=== PATIENT | female | born 1940 | race Caucasian/White ===

== ENCOUNTER 2016-10-24 09:43 | Outpatient (CLI) | payer MEDICARE, OTHER ==
[2016-10-24 10:43] LABS: eGFR (African) > 60; eGFR (Non-African) > 60
== END 2016-10-24 09:44 ==
LOC: RAD 09:43
PROVIDERS: ATTEND Family Medicine
DX: E78.2 Mixed hyperlipidemia (principal); Z78.0 Asymptomatic menopausal state
CPT/HCPCS: 36415; 80053; 80061

== ENCOUNTER → 2017-10-31 | Outpatient (CLI) | payer MEDICARE, OTHER ==
[2017-10-31 18:02] LABS: TOTAL PROTEIN 7.1 g/dL (6.0-8.5)
== END ==
LOC: LAB 08:00
PROVIDERS: ATTEND Family Medicine
DX: E78.2 Mixed hyperlipidemia (principal)
CPT/HCPCS: 80053; 80061

== ENCOUNTER 2018-03-03 11:03 | Outpatient (CLI) | payer MEDICARE, OTHER ==
[2018-03-03 11:37] LABS: MEAN CORPUSCULAR HEMOGLOBIN 29.9 pg (28.0-34.0)
[2018-03-03 11:51] LABS: eGFR (Non-African) > 60
== END 2018-03-03 11:05 ==
LOC: RT 11:03
PROVIDERS: ATTEND Family Medicine
DX: I49.9 Cardiac arrhythmia, unspecified (principal)
CPT/HCPCS: 36415; 80053; 84443; 85027

== ENCOUNTER 2018-03-19 08:46 | Outpatient (CLI) | payer MEDICARE, OTHER | END 2018-03-19 08:48 | LOC: LAB 08:46 | PROVIDERS: ATTEND Family Medicine | DX: I48.91 Unspecified atrial fibrillation (principal); Z79.01 Long term (current) use of anticoagulants; Z51.81 Encounter for therapeutic drug level monitoring | CPT/HCPCS: 36415; 85610 ==

== ENCOUNTER 2018-03-21 07:55 | Outpatient (CLI) | payer MEDICARE, OTHER | END 2018-03-21 08:06 | LOC: LAB 07:55 | PROVIDERS: ATTEND Family Medicine | DX: I48.91 Unspecified atrial fibrillation (principal); Z79.01 Long term (current) use of anticoagulants; Z51.81 Encounter for therapeutic drug level monitoring | CPT/HCPCS: 36415; 85610 ==

== ENCOUNTER 2018-03-31 15:15 | Outpatient (CLI) | payer MEDICARE, OTHER | END 2018-03-31 15:17 | LOC: LAB 15:15 | PROVIDERS: ATTEND Internal Medicine | DX: I48.0 Paroxysmal atrial fibrillation (principal) | CPT/HCPCS: 36415; 85610 ==

== ENCOUNTER 2018-04-03 08:16 | Outpatient (CLI) | payer MEDICARE, OTHER | END 2018-04-03 08:18 | LOC: LAB 08:16 | PROVIDERS: ATTEND Family Medicine | DX: I48.2 Chronic atrial fibrillation (principal); Z51.81 Encounter for therapeutic drug level monitoring; Z79.01 Long term (current) use of anticoagulants | CPT/HCPCS: 36415; 85610 ==

== ENCOUNTER 2018-04-04 08:26 | Outpatient (CLI) | payer MEDICARE, OTHER | END 2018-04-04 08:35 | LOC: LAB 08:26 | PROVIDERS: ATTEND Family Medicine | DX: I48.2 Chronic atrial fibrillation (principal); Z51.81 Encounter for therapeutic drug level monitoring | CPT/HCPCS: 36415; 85610 ==

== ENCOUNTER 2018-04-10 09:06 | Outpatient (CLI) | payer MEDICARE, OTHER | END 2018-04-10 09:08 | LOC: LAB 09:06 | PROVIDERS: ATTEND Family Medicine | DX: I42.2 Other hypertrophic cardiomyopathy (principal); Z51.81 Encounter for therapeutic drug level monitoring | CPT/HCPCS: 36415; 85610 ==

== ENCOUNTER 2018-04-24 08:13 | Outpatient (CLI) | payer MEDICARE, OTHER | END 2018-04-24 08:30 | LOC: LAB 08:13 | PROVIDERS: ATTEND Internal Medicine | DX: Z79.01 Long term (current) use of anticoagulants (principal) | CPT/HCPCS: 36415; 85610 ==

== ENCOUNTER 2018-04-30 09:35 | Outpatient (CLI) | payer MEDICARE, OTHER | END 2018-04-30 09:36 | LOC: LAB 09:35 | PROVIDERS: ATTEND Internal Medicine | DX: Z79.01 Long term (current) use of anticoagulants (principal) | CPT/HCPCS: 36415; 85610 ==

== ENCOUNTER 2018-05-07 08:10 | Outpatient (CLI) | payer MEDICARE, OTHER | END 2018-05-07 08:13 | LOC: LAB 08:10 | PROVIDERS: ATTEND Internal Medicine | DX: Z79.01 Long term (current) use of anticoagulants (principal) | CPT/HCPCS: 36415; 85610 ==

== ENCOUNTER 2018-05-14 08:07 | Outpatient (CLI) | payer MEDICARE, OTHER | END 2018-05-14 08:10 | LOC: LAB 08:07 | PROVIDERS: ATTEND Internal Medicine | DX: Z79.01 Long term (current) use of anticoagulants (principal) | CPT/HCPCS: 36415; 85610 ==

== ENCOUNTER 2018-05-21 08:15 | Outpatient (CLI) | payer MEDICARE, OTHER | END 2018-05-21 08:17 | LOC: LAB 08:15 | PROVIDERS: ATTEND Internal Medicine | DX: Z79.01 Long term (current) use of anticoagulants (principal) | CPT/HCPCS: 36415; 85610 ==

== ENCOUNTER 2018-05-28 08:20 | Outpatient (CLI) | payer MEDICARE, OTHER | END 2018-05-28 08:22 | LOC: LAB 08:20 | PROVIDERS: ATTEND Internal Medicine | DX: Z79.01 Long term (current) use of anticoagulants (principal) | CPT/HCPCS: 36415; 85610 ==

== ENCOUNTER 2018-06-04 08:02 | Outpatient (CLI) | payer MEDICARE, OTHER | END 2018-06-04 08:04 | LOC: LAB 08:02 | PROVIDERS: ATTEND Internal Medicine | DX: Z79.01 Long term (current) use of anticoagulants (principal) | CPT/HCPCS: 36415; 85610 ==

== ENCOUNTER 2018-06-12 08:02 | Outpatient (CLI) | payer MEDICARE, OTHER | END 2018-06-12 08:03 | LOC: LAB 08:02 | PROVIDERS: ATTEND Internal Medicine | DX: Z79.01 Long term (current) use of anticoagulants (principal) | CPT/HCPCS: 36415; 85610 ==

== ENCOUNTER 2018-06-26 08:03 | Outpatient (CLI) | payer MEDICARE, OTHER | END 2018-06-26 08:05 | LOC: LAB 08:03 | PROVIDERS: ATTEND Internal Medicine | DX: Z79.01 Long term (current) use of anticoagulants (principal) | CPT/HCPCS: 36415; 85610 ==

== ENCOUNTER 2018-08-29 09:00 | Outpatient (CLI) | payer MEDICARE, OTHER | END 2018-08-29 09:05 | disposition home or self-care (01) | LOC: LAB 09:00 | PROVIDERS: ATTEND Internal Medicine | DX: Z51.81 Encounter for therapeutic drug level monitoring (principal); Z79.01 Long term (current) use of anticoagulants | CPT/HCPCS: 36415; 85610 ==

== ENCOUNTER 2018-09-24 10:52 | Outpatient (CLI) | payer MEDICARE, OTHER ==
[2018-09-24 11:09] LABS: BASOPHILS % 0.3 % (0.0-1.5); NEUTROPHILS # 3.1 # k/uL (1.4-7.7)
[2018-09-24 11:20] LABS: eGFR (Non-African) > 60
--- NOTE | 2018-09-25 09:28 | Diagnostic Imaging Report ---
JOSE HOUGH [facility] [id number] [facility] [address] [place], [place]. [address] Report Submission Date: Sep 24, 2018 11:44:08 AM CDT Patient Study Name: BETTY ZIMMERMAN Date: Sep 24, 2018 11:15:32 AM CDT Modality Type: CT\SR Gender: F Description: CT HEAD W/O : 40 Institution: [facility] Physician: JOSE HOUGH Examination: CT head without contrast History: DIZZINESS AND HEADACHES X1 MONTH Comparison exam: None available Technique: Noncontrast head CT protocol. Findings: Ventricles and sulci are prominent. Cerebrocerebellar parenchyma demonstrates periventricular low attenuation consistent with small vessel disease. No evidence for parenchymal hemorrhage. Basal ganglia calcifications. No evidence for mass or mass effect. No midline shift. No extra axial fluid collections. Partial visualization of the paranasal sinuses, mastoid air cells, orbits, skull and scalp without gross irregularity. Impression: Age related changes. No acute parenchymal process. No hemorrhage. Electronically signed on Sep 24, 2018 11:44:08 AM CDT by: Morteza LAUGHLIN
== END 2018-09-24 10:54 ==
LOC: RAD 10:52
PROVIDERS: ATTEND Family Medicine
DX: R42 Dizziness and giddiness (principal); G44.89 Other headache syndrome
CPT/HCPCS: 36415; 70450; 80053; 85025

== ENCOUNTER 2018-12-01 08:26 | Outpatient (CLI) | payer MEDICARE, OTHER | END 2018-12-01 08:28 | LOC: LAB 08:26 | PROVIDERS: ATTEND Internal Medicine | DX: Z51.81 Encounter for therapeutic drug level monitoring (principal); Z79.01 Long term (current) use of anticoagulants | CPT/HCPCS: 36415; 85610 ==

== ENCOUNTER 2018-12-29 08:26 | Outpatient (CLI) | payer MEDICARE, OTHER | END 2018-12-29 08:40 | LOC: LAB 08:26 | PROVIDERS: ATTEND Internal Medicine | DX: Z51.81 Encounter for therapeutic drug level monitoring (principal); Z79.01 Long term (current) use of anticoagulants | CPT/HCPCS: 36415; 85610 ==

== ENCOUNTER 2019-02-03 09:16 | Outpatient (CLI) | payer MEDICARE, OTHER | END 2019-02-03 09:21 | LOC: LAB 09:16 | PROVIDERS: ATTEND Internal Medicine | DX: Z51.81 Encounter for therapeutic drug level monitoring (principal); Z79.01 Long term (current) use of anticoagulants | CPT/HCPCS: 36415; 85610 ==

== ENCOUNTER 2019-03-02 08:31 | Outpatient (CLI) | payer MEDICARE, OTHER | END 2019-03-02 08:36 | LOC: LAB 08:31 | PROVIDERS: ATTEND Internal Medicine | DX: Z51.81 Encounter for therapeutic drug level monitoring (principal); Z79.01 Long term (current) use of anticoagulants | CPT/HCPCS: 36415; 85610 ==